=== PATIENT | male | born 1980 | race Caucasian/White ===

== ENCOUNTER 2018-09-07 13:05 | Emergency (ER) | payer OTHER ==
[~2018-09-07] VITALS: Ht 177.8 cm; Wt 95.5 kg
[2018-09-07 13:17] VITALS: BP 147/88; TEMP 97.8
[2018-09-07] MEDS ORDERED: NORCO 325 MG-7.1 TAB PO (14:39)
[2018-09-07 14:50] VITALS: PULSE 70
== END 2018-09-07 14:50 | disposition home or self-care (01) ==
LOC: COL.ER 13:05
DX: G50.0 Trigeminal neuralgia (principal)

== ENCOUNTER → 2020-09-12 | Outpatient (CLI) | payer OTHER ==
[~2020-09-12] MED LIST: NORCO 325 MG-7.1 TAB PO
== END ==
LOC: COL.RAD 09:13
DX: R51.9 Headache, unspecified (principal)

== ENCOUNTER → 2020-09-27 | Outpatient (CLI) | payer OTHER | LOC: COL.RAD 07:10 | DX: R51.9 Headache, unspecified (principal) | CPT/HCPCS: A9585 ==